=== PATIENT | female | born 1980 | race Caucasian/White ===

== ENCOUNTER → 2023-08-31 08:30 | Day surgery (SDC) | payer OTHER, SELFPAY ==
--- NOTE | 2023-08-31 | MR_ITS ---
The [address] [address] Patient Name: MARTINEZ PROCTOR MRN: [id number] date: 1980 Sex: F Assigned Patient Location: MRI Current Patient Location: MRI Accession/Order Number: [id number] Exam Date: 08/31/2023 09:20 Report Date: 08/31/2023 22:36 At the request of: JASMYN MUNOZ Procedure: MR hip RT w con EXAM: MR hip RT w con HISTORY: Right Hip Pain COMPARISON: None. TECHNIQUE: MRI images obtained with multiple sequences. MRI of the right hip after intra-articular injection of contrast material. FINDINGS: No significant degeneration of the lower lumbar spine. Sacroiliac joints are normal. No acute abnormality of the visualized organs of the pelvis. Degenerative free edge fraying/tearing of the anterior labrum Superolateral labrum is intact. No full-thickness chondral loss of the right hip joint. Right abductor tendons are intact. Bilateral hamstring origins are intact. Bilateral abductor muscle bulk is preserved and symmetric. Right rectus femoris origin is intact. Right iliopsoas tendon is intact. MR/MR hip RT w con IMPRESSION: 1. Free edge fraying/tearing of the right anterior labrum 2. No full-thickness chondral loss of the right hip joint. No significant right hip joint degeneration. 3. No acute abnormality of the visualized organs of the pelvis. Electronically authenticated by: TERESA MEDINA Date: 08/31/2023 22:36
--- NOTE | 2023-08-31 08:34 | FL_ITS ---
[address] [address] Patient Name: MARTINEZ PROCTOR MRN: [id number] date: 1980 Sex: F Assigned Patient Location: MRI Current Patient Location: MRI Accession/Order Number: [id number] Exam Date: 08/31/2023 09:00 Report Date: 08/31/2023 12:11 At the request of: JASMYN MUNOZ Procedure: FL arthrogram hip EXAMINATION: FL arthrogram hip HISTORY: Right Hip Pain COMPARISON: 10/01/2022 TECHNIQUE: An arthrogram was performed under fluoroscopic guidance using non-ionic contrast material in the usual sterile manner after obtaining informed consent. Standard level fluoroscopic mode of operation utilized. FINDINGS: JOINT: NEEDLE: 25 gauge, 3.5 spinal needle. MEDICATION: 10 mL injected into joint space consisting of a mixture of 10 cc normal saline, 5 cc Omnipaque-300, 5 cc 1% Xylocaine, and 0.2 cc Dotarem. TECHNIQUE: Anterior approach under fluoroscopic guidance. COMPLICATIONS: None. BONES: No fracture, significant osseous degenerative changes, or visible bone lesion. OTHER: Negative. FL/FL arthrogram hip IMPRESSION: 1. Technically successful arthrogram without complication. 2. Please see separate MRI report. Electronically authenticated by: ANNALISE PHILLIPS Date: 08/31/2023 12:11
[2023-08-31 09:00] VITALS: BP 138/91; PULSE 87; RESP 16; O2SAT 99
--- NOTE | 2023-08-31 15:43 | PC.NURSE ---
0845 patient in for right hip diagnostic arthrogram, patient educated on procedure along with d/c instructions. Consent obtained. 11: time out completed 913: procedure started, 920: procedure completed. Patient without c/o, band-aid applied to site. Patient assisted up and ambulates. No change in c/o pain which remains rated at a 3 . 0926: Patient to MRI
== END ==
PROVIDERS: Radiology Diagnostic Radiology
DX: M25.551 Pain in right hip (principal); S73.191A Other sprain of right hip, initial encounter
CPT/HCPCS: 27093; 73722; 77002; A9575; Q9967

== ENCOUNTER 2025-07-27 13:25 | Emergency (ER) | payer OTHER, SELFPAY ==
[2025-07-27 13:29] VITALS: BP 119/86; PULSE 85; TEMP 36.9; O2SAT 96; BMI 32.4
--- NOTE | 2025-07-27 13:50 | XR_ITS ---
[address] [address] Patient Name: MARTINEZ PROCTOR MRN: [id number] date: 1980 Sex: F Assigned Patient Location: ER Current Patient Location: ED.MAIN Accession/Order Number: [id number] Exam Date: 07/27/2025 14:08 Report Date: 07/27/2025 14:31 At the request of: YAMILEX COLLINS Procedure: XR chest 1V XR chest 1V 07/27/2025 2:13 PM SIGNS AND SYMPTOMS: ^cough, chest discomfort with cough PROTOCOL: Frontal radiograph of the chest COMPARISON: 07/15/2019 FINDINGS: The trachea is midline. The heart and mediastinal structures are within normal limits. The lung parenchyma is clear. The bony thorax is intact. XR/XR chest 1V IMPRESSION: No acute cardiopulmonary pathology. Impression dictated by: Mode Wong M.D. 07/27/2025 2:31 PM Dictation Location: [employer] Electronically authenticated by: [id number] Y Date: 07/27/2025 14:31
--- NOTE | 2025-07-27 13:50 | ED_ITS ---
HPI - URI/Sore Throat General Chief Complaint: Upper Respiratory Infection Stated Complaint: CHEST PAIN Time Seen by Provider: 07/27/25 13:37 Source: patient Limitations: no limitations History of Present Illness HPI Narrative: 45 year old female presents to the ED for a cough and chest discomfort with cough. Onset was Thursday07/19/25 with a sore throat, sinus congestion/drainage, cough, body aches. The sore thoat has improved. Denies fever, chills, N/V/D. She is concerned for pneumonia. Related Data Home Medications ?Medication ?Instructions ?Recorded ?Confirmed No Known Home Medications 08/20/2307/15 Allergies Allergy/AdvReac Type Severity Reaction Status Date / Time No Known Drug Allergies Allergy Verified 07/27/25 13:32 Review of Systems ROS Constitutional Denies: fever or chills Ears, nose, mouth, and throat Reports: throat pain, nasal discharge and nasal congestion; Denies: neck pain or throat swelling Cardiovascular Reports: chest pain; Denies: palpitations Respiratory Reports: cough; Denies: shortness of breath Musculoskeletal Reports: back pain; Denies: neck pain Neurological Denies: headache or dizziness PFSH [facility] Surgical History (Updated 08/20/23 @ 15:02 by Dee Verdugo) History of ovarian cystectomy ?Z98.890 - Other specified postprocedural states (ICD-10) ?Z87.42 - Personal history of other diseases of the female genital tract (ICD-10) S/P left knee arthroscopy ?Z98.890 - Other specified postprocedural states (ICD-10) History of hip surgery ?Z98.890 - Other specified postprocedural states (ICD-10) Social History Little interest or pleasure in doing things: not at all Feeling down, depressed, or hopeless: not at all Exam Constitutional Vital Signs, click to edit/add: Last Vital Signs Temp 98.4 F 07/27/25 13:29 Pulse 85 07/27/25 13:29 Resp 16 07/27/25 13:29 BP 119/86 07/27/25 13:29 Pulse Ox 96 07/27/25 13:29 O2 Del Method Room Air 07/27/25 13:29 HENMT Common normals: external ears normal, moist oral mucous membranes and oropharynx normal Mouth: oral and palatal mucosa normal and lip normal Throat: posterior oropharynx normal and uvula midline Eye Common normals: conjunctivae normal and no scleral icterus Neck & C-Spine Common normals: supple Chest Chest: symmetrical chest wall rise Respiratory Common normals: normal respiratory effort and clear to auscultation bilaterally Effort & inspection: able to speak in complete sentences and symmetric chest movement Cardio Common normals: regular rate and regular rhythm Neuro Common normals: oriented x3 and moves all extremities Sensorium/orientation: awake and alert Course Vital Signs Vital signs: Vital Signs Temperature 98.4 F 07/27/25 13:29 Pulse Rate 85 07/27/25 13:29 Respiratory Rate 16 07/27/25 13:29 Blood Pressure 119/86 07/27/25 13:29 Pulse Oximetry 96 07/27/25 13:29 Oxygen Delivery Method Room Air 07/27/25 13:29 Temperature 98.4 F 07/27/25 13:29 Pulse Rate 85 07/27/25 13:29 Respiratory Rate 16 07/27/25 13:29 Blood Pressure 119/86 07/27/25 13:29 Pulse Oximetry 96 07/27/25 13:29 Oxygen Delivery Method Room Air 07/27/25 13:29 MDM - URI/Sore Throat MDM Narrative Medical decision making narrative: Chest x-ray showed no acute findings. Findings were discussed. Follow up with pcp for a recheck, further evaluation and treatment. Return to the ED for worsening symptoms. Medical Records Attestation: I reviewed the patient's medical records. Imaging Data Chest x-ray: Attestation: I have reviewed the pertinent imaging results. Radiologist's impression: ITS Impressions Chest X-Ray 07/27/25 13:50 IMPRESSION: No acute cardiopulmonary pathology. Impression dictated by: Mode Wong M.D. 07/27/2025 2:31 PM Dictation Location: [place] [address] Electronically authenticated by: [id number] Y Date: 07/27/2025 14:31 ECG Data Attestation: ?I have reviewed the pertinent ECG results. (EKG was reviewed by the attending physician. It showed an atrial rhythm. No STEMI.) Interpretation: Measurements Intervals [place] Rate: 70 P: 270 IA: 154 QRS: 23 QRSD: 74 T: 56 QT: 390 QTc: 411 Interpretive Statements 1200 Atrial rhythm 3113 Cannot rule out anterior myocardial infarction, probably old 8102 Low QRS voltage in chest leads 9150 abnormal ECG No previous ECG available for comparison Discharge Plan Discharge Chief Complaint: Upper Respiratory Infection Clinical Impression: Upper respiratory infection, Atypical chest pain Patient Disposition: Home, Self-Care Time of Disposition Decision: 15:15 Condition: Good Mode of Transportation: Private Vehicle Prescriptions / Home Meds: No Action No Known Home Medications Print Language: Maldivian Instructions: Upper Respiratory Infection (ED), Chest Wall Pain (ED) Additional Instructions: Return to the ED for worsening symptoms. Referrals: JASMYN MUNOZ [Primary Care Provider] - 1 week Discharge Date/Time: 07/27/25 15:29
--- NOTE | 2025-07-27 13:53 | ECG_ITS ---
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 Measurements Intervals [place] Rate: 70 P: 270 MT: 154 QRS: 23 QRSD: 74 T: 56 QT: 390 QTc: 411 Interpretive Statements ECTOPIC ATRIAL RHYTHM 3113 Cannot rule out anterior myocardial infarction, probably old 8102 Low QRS voltage in chest leads 9150 abnormal ECG No previous ECG available for comparison Electronically Signed On 07-27-2025 18:39:12 EST by SEBASTIAN DENNY M.D.
--- OUTSIDE RECORDS SUMMARY | 2025-07-27 14:33 | XMS_ITS | Clinical Summary ---
Author Organization [employer] [facility] [employer] Address [id number] [address] [place] [address] Care Team Providers Care Kettle Tender Name Role Phone Varun Chandler DO Primary Care Provider [phone] Allergies No known active allergies Medications No known medications Social History Tobacco UseTypesPacks/DayYears UsedDateSmoking Tobacco: NeverAlcohol UseStandard Drinks/WeekCommentsNo0 (1 standard drink = 0.6 oz pure alcohol)ChildcareAnswer Date KsnhwkuoFgyomtvlrBejmlab21/12/2019EmploymentAnswerDate RecordedEmployment Czoxsxk5802/23/2019Purpose - LifeAnswerDate RecordedPurpose and direction in life Qonyvkf12/11/2021CommentsUnknownSex and Gender InformationValueDate RecordedSex Assigned at BirthNot on fileLegal PlxSsfsbx33/06/2015 11:32 AM EDT Gender IdentityNot on fileSexual OrientationNot on file Last Filed Vital Signs Vital SignReadingTime TakenCommentsBlood Hbnhlrbo954/7302/10/2017 8:46 PM EDT Rsixq420402/10/2017 8:46 PM SHMWpldmzsuqiv75.6 ??C (97.9 ??F)02/10/2017 7:56 PM EDTRespiratory Brhx663902/10/2017 8:46 PM EDTOxygen Labonxdktf130%02/10/2017 8:46 PM EDTInhaled Oxygen Concentration--Uapfed18.6 kg (160 lb)02/10/2017 7:56 PM EDT Nzdlsd893.6 cm (5' 4 )02/10/2017 7:56 PM EDTBody Mass Index27.46002/10/2017 7:56 PM EDT Plan of Treatment Health MaintenanceDue DateLast DoneCommentsDepression Mkepjgiym83/07/1990Tobacco Hgtobwaoe58/07/1990Adult BMI Yilsiempr84/07/1996DTaP,Tdap and Td Vaccines (1 - Tdap)1997Pap Smear1999Influenza Uckdkja3205/15/2025 Medical Devices Not on file Insurance Care Teams Team MemberRelationshipSpecialtyStart DateEnd Varun Chandler DO [facility]05/28/18
--- OUTSIDE RECORDS SUMMARY | 2025-07-27 14:33 | XMS_ITS | Patient Health Record ---
Author Organization [facility] Address [address] [place], [place] [address] Support Name Relationship Address Phone Tam Guerrero Emergency Contact [address] [place], [place] [id number] Charleen Guerrero Guarantor Unknown [phone] Allergies No Known Allergies Reason For Referral No Information Problems Problem Type SNOMED Code ICD Code Onset Dates Problem Status W/U Status Risk Notes Problem Dyspareunia (03582498) Dyspareunia (625.0 ) ActiveconfirmedComment:pt states just over last few months, feels like gets dry during episode, pt to use lubricants.,ProblemCervical high risk HPV (human papillomavirus) test positive (726254199)Cervical high risk HPV (human papillomavirus) test positive (R87.810)ActiveconfirmedComment:pap negative, ProblemGynecological examination normal (402385981464702)Well woman exam with routine gynecological exam (Z01.419)Activeconfirmed Story:no abnormal papsmear no breast disease, ProblemFamily history of malignant neoplasm of breast (741684263)Family history of breast cancer in female (Z80.3)Activeconfirmed Comment:mother diagnosed at 45 yo, mastectomy, radiation/chemo, no genetic testing mat , diagnosed in 70's pt had baseline mammogram last month negative., Plan Of Treatment No Information Insurance Providers Payer Name Payer Address Payer Phone Subscriber Number Group Number Insured Name Patient Relationship to Insured Coverage Start Date Coverage End Date [facility] 2023 Claims Attn New Claims [address] [place], [place] [phone] [id number] Sergio Guerreroelf - patient is the [id number] 2014 Medical (General) History Surgical History Surgery Date(Month/Year) Ovarian cystectomy, COMMENTS : 2009--due to cyst--no cyst found at time of procedure, ProblemStatus: Active, Oral Surgery, COMMENTS: wisdom teeth, ProblemStatus: Active,
--- OUTSIDE RECORDS SUMMARY | 2025-07-27 14:33 | XMS_ITS | Clinical Summary ---
Author Organization [facility] Address [address] [place] [address] Care Team Providers Care Cow Tender Name Role Phone Júnior Lanier DO Primary Care Provider Allergies No known active allergies Medications MedicationSigDispense QuantityRefillsLast FilledStart DateEnd DateStatus acetaminophen (ACETAMINOPHEN EXTRA STRENGTH) 500 mg tablet Take 1 tablet by mouth every 6 hours as needed for pain. 40 tablet 12/21/2023ctive aspirin, enteric coated (ADULT LOW DOSE ASPIRIN) 81 mg EC tablet Take 1 tablet by mouth daily with breakfast for 21 days. 21 tablet 12/21/2023ctive docusate sodium (COLACE) 100 mg capsule Indications:constipationTake 1 capsule by mouth two times a day. 30 capsule 12/21/2023ctive methocarbamol (ROBAXIN) 500 mg tablet Take 1 tablet by mouth four times a day as needed (for muscle spasms or pain). 40 tablet 12/21/2023ctive ondansetron orally disintegrating (ZOFRAN ODT) 4 mg disintegrating tablet Take 1 tablet by mouth every 8 hours as needed for nausea/vomiting. 9 tablet 12/21/2023ctive Active Problems ProblemNoted DateDiagnosed DateAcetabular labrum tear, right, subsequent swxqrnpxe78/08/2024Obesity, Class II, BMI 35-39.904 Resolved Problems ProblemNoted DateDiagnosed DateResolved DateObesity (BMI 30-39.9)12/04/2023 12/21/2023 Assessment & Plan (12/04/2023 11:36 AM EDT): Assessment: Body mass index is 35.87 kg/m??. Class 2 obesity without serious comorbidity with body mass index (BMI) of 36.0 to 36.9 in adult/ Assessment & Plan (11/14/2022 11:06 AM EST): Assessment: BMI 36, Monitored by PCP Encounters DateTypeDepartmentCare OlfyCzfsbcgbwdg70/07/2025 11:15 AM EDTOffice Visit [facility] [address] [place] [phone] Abihshek Vargas MD Acetabular labrum tear, left, subsequent encounter (Primary Dx)06/19/2025Travel from Last 3 Months Family History Medical HistoryRelationCommentsCancerMotherDiabetesPaternal Grandmother HypertensionPaternal GrandmotherRelationStatusCommentsMotherPaternal Grandmother Social History Tobacco UseTypesPacks/DayYears UsedDateSmoking Tobacco: NeverPassive Smoke Exposure: NeverSmokeless Tobacco: Never Tobacco Cessation:Counseling Given: Not Answered Alcohol UseStandard Drinks/WeekCommentsNever0 (1 standard drink = 0.6 oz pure alcohol)PHQ-2AnswerDate RecordedPHQ-2 zryva037/06/2025Area Deprivation Index AnswerDate RecordedNational Score (1-100), lower number is lower risk65 02/17/2023State Score (1-10), lower number is lower yvku1863Data from: https://www.neighborhoodatlas.medicine.[facility].edu/. Last address used for [address] 3CommentsNoSex and Gender InformationValueDate RecordedSex Assigned at BirthNot on fileLegal SexFemale 10/28/2022 9:25 AM ESTGender IdentityNot on fileSexual OrientationNot on file Last Filed Vital Signs Vital SignReadingTime TakenCommentsBlood Cjiirwrm45/65012/21/2023 2:15 PM EDT Nnnhf2187 2:18 PM VGSPxkqzobzacl80.3 ??C (97.4 ??F)12/21/2023 2:14 PM EDTRespiratory Vqyu190212/21/2023 2:18 PM EDTOxygen Nmgqcjyvit41%12/21/2023 2:18 PM EDTInhaled Oxygen Concentration--Ymouvp21.3 kg (210 lb)12/21/2023 10:09 AM OPNSmtbdg226.6 cm (5' 4 )12/21/2023 10:09 AM EDTBody Mass Index36.05012/21/2023 10:09 AM EDT Plan of Treatment Health MaintenanceDue DateLast DoneCommentsAnxiety Ivbfxmabg65/07/1996Depression Pxripntnf64/07/1996HIV Pxgwammso82/07/1996Hepatitis C Nsuththoe10/07/1996 Cervical Cancer Upcieqejk31/07/1999Mammogram Aaxlyobds22/07/2018CT Colonography 3Cologuard (FIT-DNA)02/18/20236486Ydodempxyyk90/07/2023olorectal Cancer Oemudsozo25/07/2023iabetes Ensgnvjdz63/Fecal Occult Blood 2023Lipid Blorxitsu34/07/1592Aplbaiatdrgil33/07/2023ovid-19 Vaccine ( season)/12/2020, 12/23/2020, 11/29/2020Influenza Vaccine (#1)/03/2021, 07/10/2020, 07/12/2019, Additional history exists DTaP,Tdap,Td Vaccine (3 - Td or Tdap), 02/24/2010, 12/26/1999Hepatitis B KxpbqdwZeohyrdfg49/11/2005, 08/26/2004, 07/12/2004 Medical Devices ImplantedTypeAreaManufacturerDevice IdentifierShelf Expiration DateModel / Serial / LotFibertak Hip Self Bunching Kl [place] 1.8mm Ar-3636h Implanted:Qty[facility] - [facility] [employer]8AR-3636H / / [id number] Hip Self Bunching Kl [place] 1.8mm Ar-3636h Implanted:Qty[facility] - Hip [employer]8AR-3636H / / [id number] Hip Self Bunching Kl [place] 1.8mm Ar-3636h Implanted:Qty: 1 [facility]/20[facility] Bone - Hip [employer]//8AR-3636H / / [id number] Hip Self Bunching Kl [place] 1.8mm Ar-3636h Implanted:Qty: 1 on 12/21/2023 by Abhishek Vargas MD at [facility] Right: Bone - HipAR[employer]X INC8AR-3636H / / [id number] Hip Self Bunching Kl [place] 1.8mm Ar-3636h Implanted:Qty: 1 on 12/21/2023 by Abhishek Vargas MD at [facility] Right: Bone - HipAR[employer]REX INC8AR-3636H / / [id number] Hip Self Bunching Kl [place] 1.8mm Ar-3636h Implanted:Qty: 1 on 12/21/2023 by Abhishek Vargas MD at [facility] Right: Bone - HipAR[employer]REX INC8AR-3636H / / [id number] Insurance Care Teams Team MemberRelationshipSpecialtyStart DateEnd Júnior Lanier DO [facility] [place] [address] [facility]11/27/23
--- OUTSIDE RECORDS SUMMARY | 2025-07-27 14:33 | XMS_ITS | Clinical Summary ---
Author Organization [facility] Address [address] [place] [address] Care Team Providers Care Network Operations Manager Name Role Phone Júnior Lanier MD Primary Care Provider Active Problems ProblemNoted DateDiagnosed DateLeft hip pain02/25/2023Tear of left acetabular duzejv8702/25/2023S/P hip ccdfufwnwkz84/14/2023 Family History Medical HistoryRelationNameCommentsHypertensionFatherDiabetesMaternal GrandfatherBreast cancerMaternal GrandmotherBreast cancerMotherDiabetesPaternal GrandmotherHeart diseasePaternal GrandmotherStrokePaternal GrandmotherRelation NameStatusCommentsFatherAliveMaternal GrandfatherMaternal GrandmotherMotherAlive Paternal Grandmother Social History Tobacco UseTypesPacks/DayYears UsedDateSmoking Tobacco: NeverSmokeless Tobacco: Never Tobacco Cessation:Counseling Given: Not Answered Alcohol UseStandard Drinks/WeekCommentsNever0 (1 standard drink = 0.6 oz pure alcohol)CommentsUnknownSex and Gender InformationValueDate RecordedSex Assigned at BirthNot on fileLegal AjiMrxgak92/15/2023 7:25 PM EDTGender Identity Not on fileSexual OrientationNot on file Last Filed Vital Signs Vital SignReadingTime TakenCommentsBlood Rfqowprk047/7601/ 12:00 PM EST Pulse--Temperature--Respiratory Rate--Oxygen Saturation--Inhaled Oxygen Concentration--Qqdpnr81.1 kg (192 lb)10/27/2022 12:00 PM ELFFenhiw908.6 cm (5' 4 )10/27/2022 12:00 PM ESTBody Mass Index32.9610/27/2022 12:00 PM EST Plan of Treatment Not on file Insurance Care Teams Team MemberRelationshipSpecialtyStart DateEnd Date Júnior Lanier MD PCP - GeneralFamily Knhyczla40/24/23
--- OUTSIDE RECORDS SUMMARY | 2025-07-27 14:33 | XMS_ITS | Patient Health Record ---
Author Organization [facility] Address [address] [place] [address] Care Team Providers Care Lens Cutter Name Role Phone Saba Frye Primary Care Provider Allergies No Known Allergies Reason For Referral No Information Medications Medication SIG (Take, Route, Frequency, Duration) Notes Start Date End Date Status Adipex-P 37.5 MG 1 tablet before breakfast Orall y Once a day; Duration: 30 days 3Active Social History Tobacco Use: Social History Observation Description Date Details (start date - stop date) Never Smoker NA - NA Tobacco Use/Smoking Question Answer Notes Patient is a nonsmoker Alcohol Screen (Audit-C) Question Answer Notes Did you have a drink containing alcohol in the p ast year? No Lhmvgk7NjwmgzjtybjknzYofxzezr Problems Problem Type SNOMED Code ICD Code Onset Dates Problem Status W/U Status Risk Notes Problem History of psychiatr ic disorder (706576414) Personal history of other mental and behavioral disorders (Z86.59) Activeconfirmed Plan Of Treatment Pending Test Test Name Order Date XR Hip RT AP and Lat * 04/20/2023 Insurance Providers Payer Name Payer Address Payer Phone Subscriber Number Group Number Insured Name Patient Relationship to Insured Coverage Start Date Coverage End Date [facility] CLAIMS [address] [place] [phone] [id number] Sergio Guerreroelf - patient is the insured Medical (General) History Surgical History Surgery Date(Month/Year) Hip Surgery- Left (Labrum Tear) Knee Arthroscopy- Left
== END 2025-07-27 15:29 | disposition home or self-care (01) ==
PROVIDERS: Emergency Provider Emergency Medicine
DX: J06.9 Acute upper respiratory infection, unspecified (principal); R07.89 Other chest pain
CPT/HCPCS: 71045; 93005; 99284